=== PATIENT | male | born 1960 | race Caucasian/White ===

== ENCOUNTER 2020-08-26 06:01 | Outpatient (CLI) | payer MEDICARE ==
[~2020-08-26] VITALS: Ht 177.8 cm; Wt 74.4 kg
[2020-08-26] MEDS ORDERED: TMSL.4C PO (14:25)
[2020-08-26] MEDS ORDERED: LISI2.5T PO (14:25)
== END 2020-08-26 14:53 | disposition home or self-care (01) ==
LOC: PREOP 06:01 → EDSTATUS 13:00 → PREOP 14:53
PROVIDERS: ATTEND Surgery
DX: Z01.818 Encounter for other preprocedural examination (principal)

== ENCOUNTER 2020-09-01 07:04 | Day surgery (SDC) | payer MEDICARE ==
[~2020-09-01] VITALS: Ht 177 cm; Wt 74.4 kg
[2020-09-01] VITALS (12 sets, daily range): BP systolic 99–144; BP diastolic 59–77
[~2020-09-01 07:04] MED LIST: LISI2.5T PO; TMSL.4C PO
[2020-09-01] MEDS ORDERED: fentaNYL INJ 100 MCG/2 ML AMP ONE ×2 (07:24→10:31)
[2020-09-01] MEDS ORDERED: MIDAZOLAM 2 MG/2 ML (VERSED) VIAL ONE (07:25)
[2020-09-01] MEDS ORDERED: LIDOCAINE PF 2% 5 ML (XYLOCAINE) VIAL ONE (07:25)
[2020-09-01] MEDS ORDERED: proPOfol 200 MG/20 ML (DIPRIVAN) VIAL IV ONE (07:26)
[2020-09-01] MEDS ORDERED: ceFAZolin 2 GM IV Premixed 50 ML IV ONE (07:30)
[2020-09-01] MEDS ORDERED: SEVOFLURANE (ULTANE) 15 ML INHAL SOLN ONE ×10 (07:35→11:01)
[2020-09-01] MEDS ORDERED: ONDANSETRON 4 MG/2 ML (SDV) Z0FRAN ONE (07:36)
[2020-09-01] MEDS ORDERED: ROCURONIUM 10 MG/ML 5 ML SYRINGE IV ONE (07:36)
[2020-09-01] MEDS ORDERED: LIDOCAINE/EPI 1%-1:100,000 (XYLOCAINE) 20ML ONE (07:45)
[2020-09-01] MEDS: LACTATED RINGERS 1,000 ML IV PRN ×2 (07:50→11:53)
[2020-09-01] MEDS ORDERED: PHENYLEPHRINE 100 MCG/ML 10 ML (ANESTHESIA) SYR ONE ×2 (09:35→11:01)
[2020-09-01] MEDS ORDERED: GLYCOPYRROLATE 0.2 MG/ML (ROBINUL) 2 ML VIAL ONE (10:57)
[2020-09-01] MEDS ORDERED: NEOSTIGMINE 3 MG/3 ML VIAL ONE (10:57)
--- NOTE | 2020-09-01 12:08 | Progress Note-Post Operative ---
Post-Operative Progess Note Surgeon (s)/Pizza Driver (s) Surgeon ROSALINDA HERNANDEZ DO Pizza Driver: Raphael Pre-Operative Diagnosis BILAT. INGUINAL HERNIA Post-Operative Diagnosis Bilateral indirect and direct IH Procedure & Operative Findings Date of Procedure 09/01/20 Procedure Performed/Findings After informed consent was obtained, the patient was brought to the operating room and placed on the operating table in a supine position. He was sterilely prepped and draped in a normal fashion. Local lidocaine was used to infiltrate the skin above the umbilicus. I made an incision with #11 blade, carried down to the skin into subcutaneous tissue and then deepened down the subcutaneous tissue with Bovie electrocautery down to the fascia. Fascia was incised with Bovie electrocautery and bluntly entered the abdomen, swept a finger around, placed 0 Vicryl [id number] suture and placed limited trocar port under direct visualization. Created pneumoperitoneum, able to visualize the hernia and took a picture of this and then placed two 8 mm ports about 10 cm on either side of the midline port using a local lidocaine, 11 blade for stab incision and then advanced the robotic port under direct visualization. Once this was in, I then placed the patient in Trendelenburg and then placed the working instruments, the fenestrated bipolar and the scissors. Looked on the right side and could see a hernia; direct and indirect. As well, I could see a direct and indirect hernia defect on the left side. There was some fat on the left that easily fell out. I started on the left, I came across the peritoneum approximately 8 cm away from the hernia defect, going across laterally starting from midline right at median umbilical ligament. I came across laterally all the way out about 16 cm, possibly more and then carefully dissected the visceral peritoneum away and down and then in the midline, went through the parietal side and dissected down to the pubic tubercle, dissecting this down carefully pushing the peritoneum away, I were able to then visualize the pubic tubercle and Domenic's ligament. I went 2 cm posterior and at this point, we then had a critical view of the dissection, able to dissect 2 cm across the midline to the right side, 2 cm posterior to the Domenic's ligament, able to then parietalize the vas deferens and spermatic vessels right at the groove between Domenic's and iliac vein and able to dissect, make sure there was no peritoneum between those two, able to see the direct hernia space, took a picture of this, looked at the femoral space. No femoral hernia seen and I carefully teased out the hernia sac and could visualize the direct hernia space. Next I looked on the cord and cord structures. There was a small cord lipoma that I was able to reduce as well. I could barely see the inguinal canal and the indirect space. Next I carried the posterior lateral dissection all the way out. I then did the same thing on the right reducing both indirect and direct sac. Once I could see all 4 defects and everything was reduced, I elected to place the mesh on the left first; placed a 12.4 x 17cm regular Bard 3DMax mesh. It laid in nicely, covered the hernia defect and the rest of the area. It was above the peritoneum, sutured it at the pubic tubercle with a 3-0 Vicryl suture and tied this off. I then placeed another 12.4 x 17.3cm Bard 3DMax on the right. Again, this appeared to lay in very nicely. I then brought down the pneumoperitoneum to about 10 mmHg and then started closing the peritoneum. Started laterally on the right and used a 2-0 V-lock barbed suture to start a running stitch to close the peritoneum. I had to use a second V-lock suture coming from the left to close the entire defect. This was closed nicely, took a picture of the closure at this point, then removed both needles had switched to a suture livery car driver from the scissors. The patient was then placed back supine, removed all ports under direct visualization, allowed pneumoperitoneum to escape and then closed the supraumbilical incision, closing the fascia with 0 Vicryl suture previously placed. Copiously irrigated all incisions and then closed the two small 8 mm incisions with two interrupted 4-0 undyed Monocryl subcuticular stitches and closed the supraumbilical incision with three interrupted undyed Monocryl subcuticular stitch. Area was cleaned and dried. Dermabond was placed. The patient tolerated the procedure. The sponge, instrument and needle counts were correct at the end of the case. Dr. Lim assisted on this case; helping to make incisions, close incisions, identify anatomy and passed mesh and sutures. Anesthesia Type GET Estimated Blood Loss Estimated blood loss (mL): less than 20ml Specimens/Packing Specimens Removed none ROSALINDA HERNANDEZ DO Sep 01, 2020 12:08
[2020-09-01] MEDS ORDERED: ACHD5005 PO (12:17)
--- NOTE | 2020-09-01 12:17 | Discharge Inst-Surgical ---
Discharge Inst-Surgical Depart Medication/Instructions New, Converted or Re-Newed RX: RX Given to Pt/Family Patient Instructions Follow up Appt: Make appointment for 1 week. [phone] Instructions: No lifting greater than 20 pounds. No strenuous activity. May shower in 24 hours, no tub bath or soaking. Use incentive spirometer at home as directed. No Smoking Skin/Wound Care: May remove bandages in am. You need to leave the Dermabond on incision it will fall off on it's own. Symptoms to Report: Appetite Changes, Extremity Discoloration, Numbness/Tingling, Swelling Increased, Bleeding Excessive, Eyesight Changes, Pain Increased, Urine Color Change, Constipation(Persistent), Fever over 101 degree F, Pain/Pressure in chest, Urinating Difficulty, Cough Up/Vomit Blood, Heart Beat Irreg/Pounding, Pain/Pressure in jaw, Cramps in feet or legs, Lightheadedness, Pain/Pressure in shoulder, Diarrhea(Persistent), Memory Changes Suddenly, Questions/Concerns, Weight gain consecutive days, Dizziness/Fainting, Nausea/Vomiting, Shortness of Breath, Weight gain over 2 pounds If questions or concerns contact your physician Or seek help at emergency department. Activity Activity as Tolerated: Yes Activity Instructions: Avoid Stress to Incision Driving Instructions: No Driving/Refer to Dr. Mark Discharge Diet: No Restrictions Diet After 24 Hours: Clear Liquid if Nauseous If Any Problems/Questions/Issu: Contact Your Physician, Go to Emergency Room Skin/Wound Care Infection Signs and Symptoms: Increased Redness, Foul Odor of Wound, Increased Drainage, Skin Itchy or Has a Rash, Increased Swelling, Temperature Above 101 F Wound Care Comment: heating pad to shoulder or neck tonight for pain Bathing Instructions: Shower Stitches/Karli/Dermabond Dis: Dermabond Ice Pack: Ice On and Off Site ROSALINDA HERNANDEZ DO Sep 01, 2020 12:17
--- NOTE | 2020-09-01 12:23 | Anesthesia-General Post-Op ---
General Patient Condition Mental Status/LOC: Same as Preop Cardiovascular: Satisfactory Nausea/Vomiting: Absent Respiratory: Satisfactory Pain: Controlled Complications: Absent Post Op Complications Complications None Follow Up Care/Instructions Patient Instructions None needed. Anesthesia/Patient Condition Patient Condition Patient is doing well, no complaints, stable vital signs, no apparent adverse anesthesia problems. No complications reported per nursing. TAURUS CURRIE CRNA Sep 01, 2020 12:23
[2020-09-01] MEDS ORDERED: HYDROcodone/APAP 5 MG/325 MG (LORTAB) TAB ONE (13:47)
[2020-09-01] MEDS ORDERED: HYDROcodone/APAP 5 MG/325 MG (LORTAB) TAB PO ONE (14:00)
== END 2020-09-01 15:20 | disposition home or self-care (01) ==
LOC: SDC 07:04
PROVIDERS: ATTEND Surgery
DX: K40.20 Bilateral inguinal hernia, without obstruction or gangrene, not specified as recurrent (principal); I10 Essential (primary) hypertension; Z87.891 Personal history of nicotine dependence; Z90.49 Acquired absence of other specified parts of digestive tract; Z89.112 Acquired absence of left hand; Z98.890 Other specified postprocedural states; Z79.899 Other long term (current) drug therapy
CPT/HCPCS: 49650; 87081; 94640; C1781 ×2

== ENCOUNTER 2020-09-03 18:05 | Emergency (ER) | payer MEDICARE ==
[~2020-09-03] VITALS: Ht 177 cm; Wt 72.0 kg
[~2020-09-03 18:05] MED LIST changes: +ACHD5005 PO
[2020-09-03 18:30] LABS: BASOPHILS # (AUTO) 0.1 10^3/uL (0.0-0.1); BASOPHILS % (AUTO) 0 % (0-10); EOSINOPHILS % (AUTO) 0 % (0-10); HEMATOCRIT 49 % (40-54); HEMOGLOBIN 16.7 g/dL (13.3-17.7); LYMPHOCYTES # (AUTO) 1.6 10^3/uL (1.0-4.0); LYMPHOCYTES % (AUTO) 9 % (12-44); MEAN CORPUSCULAR HEMOGLOBIN 30 pg (25-34); MEAN CORPUSCULAR HGB CONC 34 g/dL (32-36); MEAN CORPUSCULAR VOLUME 88 fL (80-99); MEAN PLATELET VOLUME 10.1 fL (9.0-12.2); MONOCYTES # (AUTO) 1.2 10^3/uL (0.0-1.0); MONOCYTES % (AUTO) 7 % (0-12); NEUTROPHILS # (AUTO) 14.1 10^3/uL (1.8-7.8); NEUTROPHILS % (AUTO) 83 % (42-75); PLATELET COUNT 268 10^3/uL (130-400)
[2020-09-03] MEDS ORDERED: LACTATED RINGERS 1,000 ML IV ONE (18:30)
[2020-09-03] MEDS ORDERED: ONDANSETRON 4 MG/2 ML (SDV) Z0FRAN IVP ONE (18:30)
--- NOTE | 2020-09-03 18:35 | ED General ---
General Chief Complaint: Abdominal/GI Problems Stated Complaint: POST SURGERY, LOSS OF APPETITE,DIARRHEA,N/V Nursing Triage Note: ARRIVED VIA AMB WITH COMPLAINTS OF DRY HEAVING AND DIARRHEA. STATES HE HAD A RECNET BILAT HERNIA SURGERY THIS WEEK. Nursing Sepsis Screen: No Definite Risk Source of Information: Patient History of Present Illness Date Seen by Provider: Sep 03, 2020 Time Seen by Provider: 18:18 Initial Comments PT ARRIVES VIA POV FROM HOME PT HAD LAPAROSCOPIC BILATERAL INGUINAL HERNIA REPAIR BY DR. HERNANDEZ 2 DAYS AGO PT C/O PAIN FROM SURGERY C/O NAUSEA AND DRY HEAVING SINCE SURGERY C/O DIARRHEA FOR THE LAST 2 HOURS--STATES HAS BEEN TO BATHROOM 6-8 TIMES, PASSING LARGE AMOUNTS OF GAS, AND SEVERAL VERY SMALL STOOLS STATES PAIN IS MUCH BETTER SINCE HE PASSED ALOT OF GAS. THIS IS FIRST STOOL SINCE SURGERY PT IS URINATING NORMALLY NO FEVER PT HAS BEEN PRESCRIBED HYDROCODONE FOR PAIN--TOOK 1 YESTERDAY AT 1600, NONE SINCE STATES HE "CAN'T EAT AND CAN'T DRINK" BECAUSE OF PAIN, AND NAUSEA ALSO HAS ZOFRAN, AND TOOK 1 PILL 2-3 HOURS AGO, THEN TRIED TO EAT RIGHT AFTER, AND THEN HAD DRY HEAVES. HAS NOT TAKEN IT ANY OTHER TIME HAS NOT ATTEMPTED TO CONTACT DR. HERNANDEZ ABOUT THESE SYMPTOMS PT HAS A FOLLOW UP APPOINTMENT NEXT WEEK WITH DR. HERNANDEZ PCP: [facility] MANUAL CONTROL AUGER PRESS OPERATOR [facility] SURGEON" DR. HERNANDEZ Allergies and Home Medications Allergies Coded Allergies: No Known Drug Allergies (Unverified , 08/26/20) Home Medications Hydrocodone Bit/Acetaminophen 1 Tab Tab, 1 TAB PO Q8H PRN for PAIN-MODERATE (5- 7) Prescribed by: ROSALINDA HERNANDEZ on 09/01/20 1217 Lisinopril Unknown Strength Tablet, Unknown Dose PO DAILY, (Reported) Promethazine HCl 25 Mg Supp.rect, 25 MG RC Q6 Prescribed by: MIKE GARCIA on 09/03/20 2020 Tamsulosin HCl 0.4 Mg Cap, 0.4 MG PO DAILY, (Reported) Patient Home Medication List Home Medication List Reviewed: Yes Review of Systems Review of Systems Constitutional: no symptoms reported; No chills, No diaphoresis EENTM: no symptoms reported Respiratory: no symptoms reported Cardiovascular: no symptoms reported Gastrointestinal: see HPI, abdominal pain, diarrhea, loss of appetite, nausea Genitourinary: no symptoms reported Musculoskeletal: no symptoms reported Skin: no symptoms reported Psychiatric/Neurological: No Symptoms Reported Hematologic/Lymphatic: No Symptoms Reported Immunological/Allergic: no symptoms reported Past Ntyrnmo-Vpkqff-Lwsvkr Hx Past Med/Social Hx: Reviewed and Corrections made Patient Social History Alcohol Use: Denies Use Drug of Choice: DENIES Smoking Status: Current Everyday Smoker (1 PPD) Type Used: Cigarettes 2nd Hand Smoke Exposure: No Recent Infectious Disease Expo: No Recent Hopitalizations: No Seasonal Allergies Seasonal Allergies: No Past Medical History Surgeries: Yes (HEMORRHOID;LEFT HAND AMPUTATION;LAP BILAT INGUINAL HERNIA REPAIR;BLADDER CA) Abdominal, Amputation, Bladder Surgery, Orthopedic, Rectal Respiratory: No Currently Using CPAP: No Currently Using BIPAP: No Cardiac: Yes Hypertension Neurological: No Genitourinary: Yes (BLADDER CANCER) Prostate Problems Gastrointestinal: No Musculoskeletal: Yes (LEFT HAND PARTIAL AMPUTATION) Amputee, Chronic Back Pain Endocrine: No HEENT: No (GLASSES ) Loss of Vision: Bilateral Hearing Impairment: Denies Cancer: Yes Bladder Did You Recieve Any Treatments: Yes What Type of Treatment Did You: Chemotherapy, Surgical Intervention Psychosocial: No Integumentary: Yes Psoriasis Blood Disorders: No Physical Exam Vital Signs Vital Signs - First Documented 09/03/20 18:15 Temp 37.1 Pulse 117 Resp 16 B/P (MAP) 128/93 (105) Pulse Ox 98 O2 Delivery Room Air Capillary Refill : Less Than 3 Seconds Height, Weight, BMI Height: '" Weight: lbs. oz. kg; 22.00 BMI Method: General Appearance: No Apparent Distress, WD/WN, Anxious, Other (TALKS AT LENGTH. DOES NOT APPEAR ILL OR TO BE IN ANY OBVIOUS DISCOMFORT OR DISTRESS. WALKS UPRIGHT AND MOVES WITHOUT DIFFICULTY) HEENT: Other (ORAL MUCOSA MOIST) Respiratory: Normal Breath Sounds, No Accessory Muscle Use, No Respiratory Distress Cardiovascular: No Edema, No JVD, No Murmur, Normal Peripheral Pulses, Tachycardia (110'S) Gastrointestinal: Normal Bowel Sounds, Soft; No Distended; Tenderness (GENERALIZED TENDERNESS), Other (SURGICAL SITES INTACT AND NO SIGNS OF INFECTION; SUB Q CREPITANCE/AIR NOTED ON ABDOMINAL PALPATION) Extremity: Normal Capillary Refill, No Pedal Edema, Other (PARTIAL AMPUTATION OF LEFT HAND) Neurologic/Psychiatric: Alert, Oriented x3, No Motor/Sensory Deficits, clinic assistant II- XII Norm as Tested, Other (MILDLY ANXIOUS) Skin: Normal Color, Warm/Dry Progress/Results/Core Measures Suspected Sepsis Recent Fever Within 48 Hours: No Infection Criteria Present: None New/Unexplained Altered Menta: No Sepsis Screen: No Definite Risk SIRS Temperature: Pulse: 117 Respiratory Rate: 16 Laboratory Tests 09/03/20 18:20: White Blood Count 17.0H Blood Pressure 128 /93 Mean: 105 Laboratory Tests 09/03/20 18:20: Creatinine 1.18, Platelet Count 268, Total Bilirubin 0.8 Results/Orders Lab Results Laboratory Tests Test 09/03/20 18:20 09/03/20 19:53 Range/Units White Blood Count 17.0 H 4.3-11.0 10^3/uL Red Blood Count 5.61 H 4.30-5.52 10^6/uL Hemoglobin 16.7 13.3-17.7 g/dL Hematocrit 49 40-54 % Mean Corpuscular Volume 88 80-99 fL Mean Corpuscular Hemoglobin 30 25-34 pg Mean Corpuscular Hemoglobin Concent 34 32-36 g/dL Red Cell Distribution Width 13.1 10.0-14.5 % Platelet Count 268 130-400 10^3/uL Mean Platelet Volume 10.1 9.0-12.2 fL Immature Granulocyte % (Auto) 1 % Neutrophils (%) (Auto) 83 H 42-75 % Lymphocytes (%) (Auto) 9 L 12-44 % Monocytes (%) (Auto) 7 0-12 % Eosinophils (%) (Auto) 0 0-10 % Basophils (%) (Auto) 0 0-10 % Neutrophils # (Auto) 14.1 H 1.8-7.8 10^3/uL Lymphocytes # (Auto) 1.6 1.0-4.0 10^3/uL Monocytes # (Auto) 1.2 H 0.0-1.0 10^3/uL Eosinophils # (Auto) 0.0 0.0-0.3 10^3/uL Basophils # (Auto) 0.1 0.0-0.1 10^3/uL Immature Granulocyte # (Auto) 0.1 0.0-0.1 10^3/uL Neutrophils % (Manual) 79 % Lymphocytes % (Manual) 14 % Monocytes % (Manual) 6 % Eosinophils % (Manual) 1 % Hypochromasia SLIGHT Anisocytosis SLIGHT Blood Morphology Comment NA Sodium Level 130 L 135-145 MMOL/L Potassium Level 4.3 3.6-5.0 MMOL/L Chloride Level 95 L 98-107 MMOL/L Carbon Dioxide Level 21 21-32 MMOL/L Anion Gap 14 5-14 MMOL/L Blood Urea Nitrogen 19 H 7-18 MG/DL Creatinine 1.18 0.60-1.30 MG/DL Estimat Glomerular Filtration Rate > 60 BUN/Creatinine Ratio 16 Glucose Level 109 H 70-105 MG/DL Calcium Level 8.8 8.5-10.1 MG/DL Corrected Calcium 9.0 8.5-10.1 MG/DL Total Bilirubin 0.8 0.1-1.0 MG/DL Aspartate Amino Transf (AST/SGOT) 15 5-34 U/L Alanine Aminotransferase (ALT/SGPT) 20 0-55 U/L Alkaline Phosphatase 89 40-136 U/L Total Protein 7.2 6.4-8.2 GM/DL Albumin 3.7 3.2-4.5 GM/DL Amylase Level 54 25-125 U/L Lipase 14 8-78 U/L Urine Color YELLOW Urine Clarity CLEAR Urine pH 6.5 5-9 Urine Specific [place] <=1.005 1.016-1.022 Urine Protein NEGATIVE NEGATIVE Urine Glucose (UA) NEGATIVE NEGATIVE Urine Ketones 1+ H NEGATIVE Urine Nitrite NEGATIVE NEGATIVE Urine Bilirubin NEGATIVE NEGATIVE Urine Urobilinogen 0.2 < = 1.0 MG/DL Urine Leukocyte Esterase NEGATIVE NEGATIVE Urine RBC (Auto) TRACE-I NEGATIVE Urine RBC 2-5 H /HPF Urine WBC 2-5 /HPF Urine Squamous Epithelial Cells NONE /HPF Urine Crystals NONE /LPF Urine Bacteria NEGATIVE /HPF Urine Casts NONE /LPF Urine Mucus NEGATIVE /LPF Urine Other LG SPERM H /HPF Urine Culture Indicated NO My Orders Orders - MIKE GARCIA DO Ed Iv/Invasive Line Start (09/03/20 18:23) Amylase (09/03/20 18:23) Cbc With Automated Diff (09/03/20 18:23) Comprehensive Metabolic Panel (09/03/20 18:23) Lipase (09/03/20 18:23) Ua Culture If Indicated (09/03/20 18:23) Ondansetron Injection (Zofran Injectio (09/03/20 18:30) Ed Iv/Invasive Line Start (09/03/20 18:23) Lactated Ringers (Lr 1000 Ml Iv Solution (09/03/20 18:30) Manual Differential (09/03/20 18:20) Ct Abdomen/Pelvis W (09/03/20 18:40) Fentanyl Inj (Sublimaze Injection) (09/03/20 18:40) Abdomen, Flat & Upright/Decub (09/03/20 18:40) Iohexol Injection (Omnipaque 350 Mg/Ml 1 (09/03/20 19:00) Received Contrast (Hold Metformin- Contr (09/03/20 19:00) Sodium Chloride Flush (Catheter Flush Sy (09/03/20 19:00) Ns (Ivpb) (Sodium Chloride 0.9% Ivpb Bag (09/03/20 19:00) Ed Iv/Invasive Line Start (09/03/20 18:58) Ns Iv 1000 Ml (Sodium Chloride 0.9%) (09/03/20 19:00) Medications Given in ED Current Medications Medications Dose Ordered Sig/Vicente Route Start Time Stop Time Status Last Admin Dose Admin Iohexol 100 ml ONCE ONCE IV 09/03/20 19:00 09/03/20 19:01 DC 09/03/20 19:16 92 ML Lactated Ringer's 1,000 ml @ 0 mls/hr Q0M ONCE IV 09/03/20 18:30 09/03/20 18:31 DC 09/03/20 18:33 1,000 MLS/HR Ondansetron HCl 4 mg ONCE ONCE IVP 09/03/20 18:30 09/03/20 18:31 DC 09/03/20 18:33 4 MG Sodium Chloride 10 ml NEEDED PRN IV 09/03/20 19:00 09/03/20 20:34 DC 09/03/20 19:17 10 ML Sodium Chloride 100 ml ONCE ONCE IV 09/03/20 19:00 09/03/20 19:01 DC 09/03/20 19:16 80 ML Vital Signs/I&O 09/03/20 09/03/20 18:15 20:34 Temp 37.1 36.6 Pulse 117 95 Resp 16 17 B/P (MAP) 128/93 (105) 160/84 (105) Pulse Ox 98 98 O2 Delivery Room Air Room Air Capillary Refill : Less Than 3 Seconds Blood Pressure Mean: 105 Progress Note : Progress Note GIVEN IV FLUIDS, ZOFRAN AND FENTANYL WITH IMPROVEMENT IN SYMPTOMS PT FEELS COMFORTABLE GOING HOME NO VOMITING OR DIARRHEA AT ANY TIME Diagnostic Imaging Comments CT ABDOMEN/PELVIS--PER RADIOLOGIST REPORT AT 1949 FINDINGS: Significant emphysematous changes within the lung bases with associated mild right basilar scarring and/or atelectasis. The liver and spleen are unremarkable. The adrenal glands are unremarkable. The pancreas is unremarkable. Gallbladder is unremarkable. The kidneys are unremarkable. Moderate vascular calcifications without aneurysmal dilatation of the abdominal aorta. However, there does appear to be high-grade stenosis involving the bilateral common iliac arteries. The urinary bladder is unremarkable. The prostate gland is mildly enlarged. The colon is gas and fluid filled with some regions of the colon appearing at the upper limits of normal in size. No evidence of bowel obstruction or pneumatosis. Small amount of free intraperitoneal air is identified throughout the abdomen and pelvis. This is associated with soft tissue gas throughout the chest and abdominal wall. Small amount of intermediate density fluid within the lower pelvis, appearing dependently layering. Rounded gas and fluid collections are noted within the bilateral inguinal regions, right greater than left. No significant adenopathy. Scattered osseous degenerative changes without acute osseous abnormality. IMPRESSION: Small amount of free air within the intraperitoneal abdomen and pelvis as well as within the chest and abdominal wall. Recommend correlation for recent postsurgical changes and if intra-peritoneal gas should be present after the surgery. Gas and fluid filled colon which may relate to an underlying diarrheal state. No definite evidence of bowel obstruction. Rounded gas and fluid collections within the bilateral inguinal regions, right greater than left, felt to be postsurgical in nature. 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 Emphysematous changes in the lung bases. ABDOMEN XRAYS--PER RADIOLOGIST REPORT AT 1950 IMPRESSION: Intraperitoneal free air. This may simply be postsurgical in nature. Recommend clinical correlation as underlying bowel injury not completely excluded. Gas-distended though not abnormally dilated bowel. This may simply be physiologic or related to early ile Reviewed: Reviewed by Me Departure Communication (Admissions) 2002--SPOKE WITH DR. CAI, SURGEON ADMINISTRATIVE TECH. RECOMMENDS LIQUID DIET, CONTINUE ZOFRAN AND HYDROCODONE. FOLLOW UP IN OFFICE NEXT WEEK SCHEDULED Impression Primary Impression: Post-operative pain Additional Impressions: Post-operative nausea and vomiting S/P LAPAROSCOPIC BILATERAL INGUINAL HERNIA REPAIR Disposition: HOME, SELF-CARE Condition: Improved Departure-Patient Inst. [place]: [facility] [place] Primary Care Physician LUKASZ GAITAN (Family) Primary Care Physician ROSALINDA HERNANDEZ DO Patient Instructions: Postoperative Pain (DC), Nausea and Vomiting, Adult ED Add. Discharge Instructions: CLEAR LIQUIDS FOR 24 HOURS, THEN INCREASE TO FULL LIQUIDS TOLERATED TAKE YOUR PAIN MEDICATION EVERY 4-6 HOURS TAKE STOOL SOFTENER DAILY WHILE TAKING PAIN MEDICATION TAKE ZOFRAN 1-2 PILLS EVERY 4 HOURS FOR NAUSEA/VOMITING FOLLOW UP WITH DR. HERNANDEZ NEXT WEEK SCHEDULED, RETURN TO ER IF SYMPTOMS WORSEN All discharge instructions reviewed with patient and/or family. Voiced understanding. Scripts Promethazine HCl (Promethazine Suppository) 25 Mg Supp.rect 25 MG RC Q6, #10 SUPP.RECT Prov: MIKE GARCIA DO 09/03/20 MIKE GARCIA DO Sep 03, 2020 18:35
[2020-09-03] MEDS ORDERED: fentaNYL INJ 100 MCG/2 ML AMP IVP STA (18:40)
[2020-09-03 18:52] LABS: ALANINE AMINOTRANSFERASE 20 U/L (0-55); ALBUMIN 3.7 GM/DL (3.2-4.5); ALKALINE PHOSPHATASE 89 U/L (40-136); AMYLASE 54 U/L (25-125); BILIRUBIN,TOTAL 0.8 MG/DL (0.1-1.0); BUN/CREATININE RATIO 16; CALCIUM 8.8 MG/DL (8.5-10.1); CARBON DIOXIDE 21 MMOL/L (21-32); CHLORIDE 95 MMOL/L (98-107); CREATININE SERUM 1.18 MG/DL (0.60-1.30); GFR ESTIMATED > 60; GLUCOSE 109 MG/DL (70-105); LIPASE 14 U/L (8-78); POTASSIUM 4.3 MMOL/L (3.6-5.0); SODIUM 130 MMOL/L (135-145); TOTAL PROTEIN 7.2 GM/DL (6.4-8.2)
[2020-09-03 18:53] LABS: ANISOCYTOSIS SLIGHT; EOSINOPHILS % (MANUAL) 1 %; HYPOCHROMASIA SLIGHT; LYMPHOCYTES % (MANUAL) 14 %; MONOCYTES % (MANUAL) 6 %; NEUTROPHILS % (MANUAL) 79 %
[2020-09-03] MEDS ORDERED: NS 100 ML (IVPB) BAG IV ONE (19:00)
[2020-09-03] MEDS ORDERED: HOLD METFORMIN - RECEIVED CONTRAST 20 ML VIAL IV SCH (19:00)
[2020-09-03] MEDS ORDERED: CATHETER FLUSH 10 ML SYR IV PRN (19:00)
[2020-09-03] MEDS ORDERED: IOHEXOL 350 MG/ML 100 ML (OMNIPAQUE 350) VIAL IV ONE (19:00)
[2020-09-03] MEDS ORDERED: NS IV 1000 ML 1,000 ML IV SCH (19:00)
--- NOTE | 2020-09-03 19:45 | Diagnostic Imaging Report ---
PROCEDURE: CT abdomen and pelvis with contrast. TECHNIQUE: Multiple contiguous axial images were obtained through the abdomen and pelvis after administration of intravenous contrast. Auto Exposure Controls were utilized during the CT exam to meet ALARA standards for radiation dose reduction. All CT scans use one or more of the following dose optimizing techniques: automated exposure control, MA and/or KvP adjustment based on patient size and exam type or iterative reconstruction. INDICATION: Postoperative pain and nausea, vomiting. COMPARISON: Imaging from the same date. FINDINGS: Significant emphysematous changes within the lung bases with associated mild right basilar scarring and/or atelectasis. The liver and spleen are unremarkable. The adrenal glands are unremarkable. The pancreas is unremarkable. Gallbladder is unremarkable. The kidneys are unremarkable. Moderate vascular calcifications without aneurysmal dilatation of the abdominal aorta. However, there does appear to be high-grade stenosis involving the bilateral common iliac arteries. The urinary bladder is unremarkable. The prostate gland is mildly enlarged. The colon is gas and fluid filled with some regions of the colon appearing at the upper limits of normal in size. No evidence of bowel obstruction or pneumatosis. Small amount of free intraperitoneal air is identified throughout the abdomen and pelvis. This is associated with soft tissue gas throughout the chest and abdominal wall. Small amount of intermediate density fluid within the lower pelvis, appearing dependently layering. Rounded gas and fluid collections are noted within the bilateral inguinal regions, right greater than left. No significant adenopathy. Scattered osseous degenerative changes without acute osseous abnormality. IMPRESSION: Small amount of free air within the intraperitoneal abdomen and pelvis as well as within the chest and abdominal wall. Recommend correlation for recent postsurgical changes and if intra-peritoneal gas should be present after the surgery. Gas and fluid filled colon which may relate to an underlying diarrheal state. No definite evidence of bowel obstruction. Rounded gas and fluid collections within the bilateral inguinal regions, right greater than left, felt to be postsurgical in nature. 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 Emphysematous changes in the lung bases. Dictated by: Dictated on workstation # [id number]
--- NOTE | 2020-09-03 19:45 | Diagnostic Imaging Report ---
INDICATION: Abdominal pain COMPARISON: Imaging from the same date TECHNIQUE: 2 radiographs of abdomen dated 09/03/2020 FINDINGS: Free air is identified within the abdomen, particularly underlying the right hemidiaphragm. Gas-filled loops of large and small bowel are present. These are both at the upper limits of normal in size though not definitively dilated. Gas is identified within the rectal vault. No suspicious calcifications overlying the abdomen. No acute osseous abnormality. IMPRESSION: Intraperitoneal free air. This may simply be postsurgical in nature. Recommend clinical correlation as underlying bowel injury not completely excluded. Gas-distended though not abnormally dilated bowel. This may simply be physiologic or related to early ileus. Dictated by: Dictated on workstation # [id number]
[2020-09-03 19:58] LABS: BILIRUBIN,URINE NEGATIVE (NEGATIVE); CLARITY,URINE CLEAR; COLOR,URINE YELLOW; GLUCOSE, URINE (UA) NEGATIVE (NEGATIVE); KETONES,URINE 1+ (NEGATIVE); LEUKOCYTE ESTERASE ,URINE NEGATIVE (NEGATIVE); NITRITE,URINE NEGATIVE (NEGATIVE); PH,URINE 6.5 (5-9); PROTEIN,URINE NEGATIVE (NEGATIVE)
[2020-09-03 20:05] LABS: BACTERIA,URINE NEGATIVE /HPF; URINE OTHER LG SPERM /HPF
[2020-09-03] MEDS ORDERED: PROM25SU44 RC (20:20)
[2020-09-03 20:34] VITALS: BP 160/84
== END 2020-09-03 20:34 | disposition home or self-care (01) ==
LOC: EDUNIT# 18:05 → ER 18:07
DX: K91.0 Vomiting following gastrointestinal surgery (principal); G89.18 Other acute postprocedural pain; C67.9 Malignant neoplasm of bladder, unspecified; I10 Essential (primary) hypertension; F17.210 Nicotine dependence, cigarettes, uncomplicated; Z89.112 Acquired absence of left hand; Z98.890 Other specified postprocedural states
CPT/HCPCS: 36415; 74019; 74177; 80053; 81000; 82150; 83690; 85007; 85027

== ENCOUNTER 2020-09-25 09:52 | Emergency (ER) | payer MEDICARE ==
[~2020-09-25] VITALS: Ht 177 cm; Wt 70.0 kg
[~2020-09-25 09:52] MED LIST changes: +PROM25SU44 RC
[2020-09-25] MEDS ORDERED: NITROGLYCERIN 2% OINT 1 GM UNIT DOSE PACKET ONE (10:26)
--- NOTE | 2020-09-25 10:28 | ED Lower Extremity ---
General Chief Complaint: Lower Extremity Stated Complaint: POSS BLOOD CLOT Nursing Triage Note: PT CO OF PAIN IN R AND L GREAT TOES, PT HAS DECREASED CAP REFILL ON R GREAT TOE. THIS RN UNABLE TO GET PULSE W HAND HELD DOPPLER, PULSE NOTED ON TIBIAL AREA NEAR INNER ANKLE. PT CO OF PAIN 10/10 AT TIMES. PT WAS SENT TO ED BY [facility]. Nursing Sepsis Screen: No Definite Risk Source: patient Exam Limitations: no limitations History of Present Illness Date Seen by Provider: Sep 25, 2020 Time Seen by Provider: 10:05 Initial Comments Patient is a 60-year-old male who presents to the emergency department today with a chief complaint of bilateral great toe pain and discoloration to the right great toe. Patient states the symptoms have been coming on for about 4 to 5 days. He is a heavy smoker 2 packs a day. He has a history of hypertension. Patient denies any previous interventions for peripheral vascular disease or cardiac disease. Patient is not anticoagulated on any medications, including aspirin. Patient states that the pain is exacerbated by movement/walking. He states the pain is greatest on the right foot. As long as he is still the pain is fairly tolerable. He denies any recent illnesses such as fevers, chills, cough or congestion. No chest pain or shortness of breath. No abdominal pain. The patient did just undergo bilateral hernia repair surgery within the last several weeks. He complains of discomfort in his groin that is persistent after surgery. Patient was seen today at [facility]. He was sent over for dusky purplish discoloration in the right great toe. All other review of systems reviewed and negative except as stated above. Onset: last week Pain/Injury Location: right 1st toe Modifying Factors: Improves With Immobilization Allergies and Home Medications Allergies Coded Allergies: No Known Drug Allergies (Unverified , 08/26/20) Home Medications Hydrocodone Bit/Acetaminophen 1 Tab Tab, 1 TAB PO Q8H PRN for PAIN-MODERATE (5- 7) Prescribed by: ROSALINDA HERNANDEZ on 09/01/20 1217 Lisinopril Unknown Strength Tablet, Unknown Dose PO DAILY, (Reported) Promethazine HCl 25 Mg Supp.rect, 25 MG RC Q6 Prescribed by: MIKE GARCIA on 09/03/202019 Tamsulosin HCl 0.4 Mg Cap, 0.4 MG PO DAILY, (Reported) Tramadol HCl 50 Mg Tablet, 50 MG PO Q6H PRN for PAIN Prescribed by: LUCÍA FRENCH on 09/25/20 1314 Patient Home Medication List Home Medication List Reviewed: Yes Review of Systems Constitutional: see HPI EENTM: no symptoms reported Respiratory: no symptoms reported Cardiovascular: no symptoms reported Gastrointestinal: no symptoms reported Genitourinary: no symptoms reported Musculoskeletal: joint pain (Right great toe, left great toe) Skin: other (Dusky purplish discoloration to the right great toe) Past Vjgujhd-Fyvnat-Ccyknw Hx Patient Social History Alcohol Use: Denies Use Drug of Choice: DENIES Smoking Status: Current Everyday Smoker Type Used: Cigarettes 2nd Hand Smoke Exposure: No Recent Infectious Disease Expo: No Recent Hopitalizations: No Seasonal Allergies Seasonal Allergies: No Past Medical History Surgeries: Yes (HEMORRHOID;LEFT HAND AMPUTATION;LAP BILAT INGUINAL HERNIA REPAIR;BLADDER CA) Abdominal, Amputation, Bladder Surgery, Orthopedic, Rectal Respiratory: No Currently Using CPAP: No Currently Using BIPAP: No Cardiac: Yes Hypertension Neurological: No Genitourinary: Yes (BLADDER CANCER) Prostate Problems Gastrointestinal: No Musculoskeletal: Yes (LEFT HAND PARTIAL AMPUTATION) Amputee, Chronic Back Pain Endocrine: No HEENT: No (GLASSES ) Loss of Vision: Bilateral Hearing Impairment: Denies Cancer: Yes Bladder Did You Recieve Any Treatments: Yes What Type of Treatment Did You: Chemotherapy, Surgical Intervention Psychosocial: No Integumentary: Yes Psoriasis Blood Disorders: No Physical Exam Vital Signs Vital Signs - First Documented 09/25/20 09:55 Temp 36.0 Pulse 86 Resp 18 B/P (MAP) 141/86 (104) Pulse Ox 99 Capillary Refill : Greater Than 3 Seconds Height, Weight, BMI Height: '" Weight: lbs. oz. kg; 22.00 BMI Method: General Appearance: WD/WN, no apparent distress HEENT: PERRL/EOMI Neck: full range of motion Cardiovascular: regular rate, rhythm Respiratory: lungs clear, normal breath sounds, no respiratory distress, no accessory muscle use Gastrointestinal: non tender, soft Hips: bilateral hip non-tender, bilateral hip normal inspection, bilateral hip normal range of motion, bilateral hip no evidence of injury Legs: bilateral leg non-tender, bilateral leg normal inspection, bilateral leg normal range of motion, bilateral leg no evidence of injury Knees: bilateral knee non-tender, bilateral knee normal inspection, bilateral knee normal range of motion, bilateral knee no evidence of injury Ankles: bilateral ankle non-tender, bilateral ankle normal inspection, bilateral ankle normal range of motion, bilateral ankle no evidence of injury Feet: right foot pain Neurologic/Tendon: normal sensation, normal motor functions, normal tendon functions, responds to pain Neurologic/Psychiatric: alert, normal mood/affect, oriented x 3 Skin: cyanosis (Lateral aspect right great toe) Progress/Results/Core Measures Results/Orders My Orders Orders - LUCÍA FRENCH MD Aspirin Chewable Tablet (Baby Aspirin Ch (09/25/20 10:30) Nitroglycerin Ointment (Nitrobid Ointme (09/25/20 10:30) Us Manuela Lower Ext [id number] (09/25/20 10:32) Nitroglycerin Ointment (Nitrobid Ointme (09/25/20 10:26) Medications Given in ED Vital Signs/I&O 09/25/20 09/25/20 09:55 13:17 Temp 36.0 Pulse 86 80 Resp 18 18 B/P (MAP) 141/86 (104) 132/80 (104) Pulse Ox 99 99 Blood Pressure Mean: 104 Diagnostic Imaging Diagonstic Imaging: Ultrasound Plain Films/CT/US/NM/MRI: leg Comments [facility], [place] NAME: MARCYJENIFFER Maxi [facility] REC#: [id number] PT STATUS: DEP ER : 1960 PHYSICIAN: LUCÍA FRENCH MD ADMIT DATE: 09/25/20/ER Signed Date of Exam:09/25/20 US MANUELA LOWER EXT [id number] PROCEDURE: US Bilateral lower extremity arterial. TECHNIQUE: Multiple real-time grayscale images are obtained through both lower extremity arterial systems with color Doppler imaging and color Doppler spectral analysis. INDICATION: Discoloration of right toe, decreased pulses. COMPARISON: None available. FINDINGS: Color Doppler imaging shows patency of the bilateral common femoral, proximal deep femoral, superficial femoral, popliteal, posterior tibial and dorsalis pedis arteries. There are no elevated peak systolic velocities to indicate hemodynamically significant stenosis. There is a mixture of triphasic and biphasic waveforms throughout the lower extremities. In the left dorsalis pedis, there is a monophasic waveform noted. IMPRESSION: 1. No arterial occlusion or high-grade stenosis in the bilateral lower extremity arteries. Dictated by: Dictated on workstation # [id number] Dict: 09/25/20 1230 Trans: 09/25/20 1324 [facility] [id number] Interpreted by: CLAIRE PHAN MD Electronically signed by: CLAIRE PHAN MD 09/25/20 1324 Departure Communication (Admissions) Time/Spoke to Consulting Phy: 13:[address] Sandoval recommends anticoagulation with full-strength aspirin daily. We will follow him up in clinic Impression Primary Impression: Claudication of both lower extremities Disposition: HOME, SELF-CARE Condition: Stable Departure-Patient Inst. Decision time for Depature: 13:12 Referrals: [facility] (PCP) Primary Care Physician LUKASZ GAITAN (Family) Primary Care Physician LUH SANDOVAL MD [facility] Patient Instructions: Peripheral Artery Disease and Claudication Add. Discharge Instructions: Please take a full-strength aspirin every day. This is 325 mg. You can take the Ultram/tramadol medication I have given you 1 every 6 hours as needed for pain. Do not drive and take this medication. Please continue your blood pressure medication as previously prescribed. Please call Dr. Sandoval's office on Sunday morning for a follow-up appointment in his office. Come back to the emergency department if you have worsening pain that extends up your legs while you are walking, if you are short of breath, if you have chest pain or any other emergent concerning symptoms develop. All discharge instructions reviewed with patient and/or family. Voiced understanding. Scripts Tramadol HCl (Tramadol HCl) 50 Mg Tablet 50 MG PO Q6H PRN for PAIN for 5 Days, #20 TAB 0 Refills Prov: LUCÍA FRENCH MD 09/25/20 Copy Copies To 1: LUH SANDOVAL MD [facility] LUCÍA FRENCH MD Sep 25, 2020 10:28
[2020-09-25] MEDS ORDERED: ASPIRIN 81 MG CHEW (CHILDREN'S ASA) PO ONE (10:30)
[2020-09-25] MEDS ORDERED: NITROGLYCERIN 2% OINT 1 GM UNIT DOSE PACKET TOP ONE (10:30)
[2020-09-25] MEDS ORDERED: NS 100 ML (IVPB) BAG IV ONE (12:15)
[2020-09-25] MEDS ORDERED: HOLD METFORMIN - RECEIVED CONTRAST 20 ML VIAL IV SCH (12:15)
[2020-09-25] MEDS ORDERED: IOHEXOL 350 MG/ML 100 ML (OMNIPAQUE 350) VIAL IV ONE (12:15)
[2020-09-25] MEDS ORDERED: CATHETER FLUSH 10 ML SYR IV PRN (12:15)
--- NOTE | 2020-09-25 12:41 | Diagnostic Imaging Report ---
PROCEDURE: US Bilateral lower extremity arterial. TECHNIQUE: Multiple real-time grayscale images are obtained through both lower extremity arterial systems with color Doppler imaging and color Doppler spectral analysis. INDICATION: Discoloration of right toe, decreased pulses. COMPARISON: None available. FINDINGS: Color Doppler imaging shows patency of the bilateral common femoral, proximal deep femoral, superficial femoral, popliteal, posterior tibial and dorsalis pedis arteries. There are no elevated peak systolic velocities to indicate hemodynamically significant stenosis. There is a mixture of triphasic and biphasic waveforms throughout the lower extremities. In the left dorsalis pedis, there is a monophasic waveform noted. IMPRESSION: 1. No arterial occlusion or high-grade stenosis in the bilateral lower extremity arteries. Dictated by: Dictated on workstation # [id number]
[2020-09-25] MEDS ORDERED: TRM50T PO (13:14)
[2020-09-25 13:17] VITALS: BP 132/80
== END 2020-09-25 13:23 | disposition home or self-care (01) ==
LOC: EDUNIT# 09:52 → ER 09:53
DX: I73.9 Peripheral vascular disease, unspecified (principal); I10 Essential (primary) hypertension; G89.29 Other chronic pain; M54.9 Dorsalgia, unspecified; F17.210 Nicotine dependence, cigarettes, uncomplicated; Z79.899 Other long term (current) drug therapy; Z79.891 Long term (current) use of opiate analgesic
CPT/HCPCS: 93925

== ENCOUNTER 2020-10-05 12:00 | Day surgery (SDC) | payer MEDICARE ==
[2020-10-05] VITALS (11 sets, daily range): BP systolic 115–161; BP diastolic 77–92
[~2020-10-05] VITALS: Ht 178 cm; Wt 70.0 kg
[2020-10-05 10:49] LABS: HEMOGLOBIN 16.7 g/dL (13.3-17.7); WHITE BLOOD COUNT 7.7 10^3/uL (4.3-11.0)
[2020-10-05 11:06] LABS: INR 0.9 (0.8-1.4); PROTHROMBIN TIME PATIENT 12.6 SEC (12.2-14.7)
[2020-10-05 11:23] LABS: ALANINE AMINOTRANSFERASE 12 U/L (0-55); ALBUMIN 4.1 GM/DL (3.2-4.5); ALKALINE PHOSPHATASE 103 U/L (40-136); BILIRUBIN,TOTAL 0.4 MG/DL (0.1-1.0); BUN/CREATININE RATIO 19; CALCIUM 9.2 MG/DL (8.5-10.1); CARBON DIOXIDE 27 MMOL/L (21-32); CHLORIDE 102 MMOL/L (98-107); CHOLESTEROL 206 MG/DL (< 200); CREATININE SERUM 1.13 MG/DL (0.60-1.30); GFR ESTIMATED > 60; GLUCOSE 83 MG/DL (70-105); HDL CHOLESTEROL 34 MG/DL (40-60); POTASSIUM 4.2 MMOL/L (3.6-5.0); SODIUM 137 MMOL/L (135-145); TOTAL PROTEIN 7.8 GM/DL (6.4-8.2); TRIGLYCERIDES 115 MG/DL (<150); VLDL CHOLESTEROL 23 MG/DL (5-40)
[~2020-10-05 12:00] MED LIST changes: +ASPI-808 PO; +HEParin (CATH LAB) 2,000 ML IV ONE; +LIDOCAINE 1% INJ 20 ML 20 ML VIAL ONE; +LISI20TA26 PO; +NS IV 1000 ML 1,000 ML IV SCH; +TRM50T PO
[2020-10-05] MEDS ORDERED: MIDAZOLAM 5 MG/5 ML (VERSED) VIAL ONE (12:14)
[2020-10-05] MEDS ORDERED: fentaNYL INJ 100 MCG/2 ML AMP ONE (12:14)
--- NOTE | 2020-10-05 12:28 | Cardiac Procedure Note-CS/ASA ---
Pre-Procedure Note Pre-Op Procedure Note H&P Reviewed The H&P was reviewed, patient examined and no changes noted. Date H&P Reviewed: October 05, 2020 Time H&P Reviewed: 12:28 Conscious Sedation Pre-Proced Time 12:28 ASA Score 3 For ASA 3 and 4: Consider anesthesia and medical clearance. Also, for patients with a history of failed moderate sedation consider anesthesia. Airway Lungs Heart ASA score ASA 1: a normal healthy patient ASA 2: a patient with a mild systemic disease (mid diabetes, controlled hypertension, obesity ASA 3: a patient with a severe systemic disease that limits activity (angina, COPD, prior Myocardial infarction) ASA 4: a patient with an incapacitating disease that is a constant threat to life (CHF, renal failure) ASA 5: a moribund patient not expected to survive 24 hrs. (ruptured aneurysm) ASA 6: a declared brain- patient whose organs are being harvested. For emergent operations, add the letter E after the classification Mallampati Classification Grade 2 Sedation Plan Analgesia, Amnesia, Plan communicated to team members, Discussed options with patient/fam, Discussed risks with patient/fam The patient is an appropriate candidate to undergo the planned procedure, sedation, and anesthesia. The patient immediately re-assessed prior to indication. LUH ESPOSITO MD FACP FAC CCDS October 05, 2020 12:28
[2020-10-05] MEDS ORDERED: AMLO-250 PO (13:26)
[2020-10-05] MEDS ORDERED: ATOR40TA70 PO (13:26)
[2020-10-05] MEDS ORDERED: CLOP75TA69 PO (13:26)
--- NOTE | 2020-10-05 13:26 | Discharge Inst-Cardiology ---
Discharge Inst-Cardiac Discharge Medications New Medications: Amlodipine Besylate (Amlodipine Besylate) 5 Mg Tablet 5 MG PO DAILY, #30 TAB 3 Refills Atorvastatin Calcium (Atorvastatin Calcium) 40 Mg Tablet 40 MG PO DAILY, #30 TAB 3 Refills Clopidogrel Bisulfate (Plavix) 75 Mg Tablet 75 MG PO DAILY for 30 Days, #30 TAB 3 Refills Continued Medications: Aspirin (Aspirin) 325 Mg Tablet 325 MG PO DAILY, TAB Tamsulosin HCl (Flomax) 0.4 Mg Cap 0.4 MG PO DAILY, CAP Tramadol HCl (Tramadol HCl) 50 Mg Tablet 50 MG PO Q6H PRN for PAIN for 5 Days, #20 TAB 0 Refills Discontinued Medications: Lisinopril (Lisinopril) 20 Mg Tablet 20 MG PO DAILY, TAB LUH ESPOSITO MD [facility] CCDS October 05, 2020 13:26
--- NOTE | 2020-10-05 13:27 | Discharge Inst-Post CATH ---
Discharge Inst-CATH/EP Post Cardiac Cath/EP D/C Inst Follow Up/Plan F/u with Dr Sandoval in one week ACTIVITY * Go Home directly and rest. * Limit activity of the leg (or wrist if it was used) for 7 days including aerobics, swimming, jogging, bicycling, etc. * Restrict stair-climbing for 7 days if possible, if not, climb up with your non-cath leg, then bring together on the same step. * Avoid lifting, pushing, pulling or excessive movement of the affected e xtremity for 7 days. * Customary sexual activity may be resumed after 2 days-use caution not to use a position that strains or causes pain to the affected extremity. * No driving for 24 hours. * NO SMOKING. * Avoid straining for bowel movements for 7 days. * Gentle walking on level ground is allowed. * Returning to work will depend on the type of procedure and the results. Your doctor will discuss this with you. CALL YOUR DOCTOR FOR ANY OF THE FOLLOWING: *If bleeding from the puncture site occurs- Apply gentle pressure to site with clean cloth and call your doctor or EMS. * If a knot or lump forms under the skin, increases in size, or causes pain. * If bruising appears to be worsening or moving further down your leg instead of disappearing. * Temperature above 101 F. CARE OF YOUR GROIN INCISION; * Bruising or purple discoloration of the skin near the puncture site is common. * You may shower only, no bathtub bathing for 5 days. Be careful to avoid slipping as your leg may feel stiff. * If a closure device was used on your femoral artery, please see the attached guide regarding care of the device and your leg. * Leave dressing on FOR 24 hours. CARE OF YOUR WRIST INCISION; * Bruising or purple discoloration of the skin near the puncture site is common. * You may shower. * DO NOT submerge wrist. * Leave dressing on FOR 24 hours. LUH SANDOVAL MD FACP FAC CCDS October 05, 2020 13:27
[2020-10-05] MEDS ORDERED: NS IV 1000 ML 1,000 ML IV SCH (13:30)
[2020-10-05] MEDS ORDERED: PATIENT MAY USE OWN MEDS, ALL PO SCH (13:30)
--- NOTE | 2020-10-05 16:06 | OPERATIVE REPORT ---
DATE OF SERVICE: PERIPHERAL ANGIOGRAPHY REPORT INDICATION FOR PROCEDURE: The patient is a 60-year-old gentleman, who developed discomfort and bluish discoloration of the right great toe in mid-September 2020. This was evaluated and he did not have any significant leg arterial circulation disturbances based on noninvasive imaging. He was discharged and referred to us. He does state that he has had a feeling of feet and toe discomfort on both sides and initially had discoloration of all toes shortly following hernia surgery by Dr. Palomino on 09/01/2020. Discoloration of the other toes improved, but the right great toe became more discolored and that is what led him to the emergency room. He continues to have bluish discoloration of that toe and discomfort in the toe. On physical examination, dorsalis pedis pulses were difficult to palpate on both sides. Given his history, risk factors, and physical findings, peripheral arterial disease was suspected and peripheral angiography was recommended. Informed consent was obtained. DESCRIPTION OF PROCEDURE: He was brought to the cardiac catheterization laboratory in a fasting state. The left groin was prepared and draped in the usual sterile fashion. Lidocaine 1% was used for local anesthesia. Modified Seldinger technique was used to advance a 5-Anguillan sheath into the left femoral artery. We used a 5-Anguillan pigtail catheter to carry out abdominal aortic angiography with the pigtail catheter placed at the level of L1. The catheter was then pulled down to the level just above the aortoiliac bifurcation and bilateral leg artery angiography was performed with runoff down to the level of the ankles. Following completion of the procedure, we removed the diagnostic catheter and carried out angiography of the left femoral artery through the sheath and Mynx was used to achieve hemostasis. He tolerated the procedure well. ABDOMINAL AORTIC ANGIOGRAPHY: Abdominal aortic angiography indicated mild to moderate infrarenal abdominal aortic stenosis with a moderate amount of eccentric plaque formation. There did not appear to be significant obstruction. Renal arteries were identified. There was a dual renal arterial system on the right. There is a single renal artery on the left. No significant stenosis is seen of the renal arteries. The aortoiliac bifurcation is intact. BILATERAL LEG ARTERY ANGIOGRAPHY: Bilateral leg artery angiography indicated mild diffuse plaques on the right side. The right common iliac, right external and internal iliac, right common femoral, right superficial femoral, right deep femoral, right popliteal and all the trifurcation vessels originating from the popliteal artery are intact and do not exhibit significant obstructive disease. On the left side, there is approximately 60% stenosis of the common iliac and 50% to 60% stenosis of the left external iliac arteries. The femoral artery is intact. The left popliteal artery is intact. The left popliteal artery has a normal trifurcation. Flow is somewhat sluggish on the left side, but other than the stenosis in the left common iliac and the left external iliac, there does not appear to be significant disease. CONCLUSIONS: 1. Eccentric atherosclerotic plaque and mild to moderate infrarenal abdominal aortic stenosis. 2. Approximately 60% stenosis of the left common iliac and the left external iliac arteries. 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 He is already on aspirin. We are adding clopidogrel to the regimen. He is on DANIKA inhibitors for blood pressure and we are changing it to a vasodilator (amlodipine). In addition, we have recommended treatment for hyperlipidemia with atorvastatin and a prescription has been provided. We have advised close outpatient followup. We have also advised to follow up on blood work in four weeks. Risk factor modification has been reviewed. We have advised him to stop smoking immediately and completely. Job ID: [id number] DocumentID: [id number] Dictated Date: 10/05/2020 13:38:41 Centrifuge Operator Date: 10/05/2020 16:05:51 Dictated By: LUH ESPOSITO MD, MA, FACP, FACC,
== END 2020-10-05 17:35 | disposition home or self-care (01) ==
LOC: CATH 17:35
PROVIDERS: ATTEND Internal Medicine Cardiovascular Disease
DX: I70.202 Unspecified atherosclerosis of native arteries of extremities, left leg (principal); I70.0 Atherosclerosis of aorta; F17.210 Nicotine dependence, cigarettes, uncomplicated; Z98.890 Other specified postprocedural states; Z79.82 Long term (current) use of aspirin; Z79.02 Long term (current) use of antithrombotics/antiplatelets; Z87.828 Personal history of other (healed) physical injury and trauma; Z82.3 Family history of stroke; Z82.49 Family history of ischemic heart disease and other diseases of the circulatory system; Z80.9 Family history of malignant neoplasm, unspecified; Z79.891 Long term (current) use of opiate analgesic
CPT/HCPCS: 75625; 75716; 80053; 80061; 85027; 85610; 85730; 87081; C1760; C1769; C1894; 36415